=== PATIENT | female | born 1975 | race African-American/Black ===

== ENCOUNTER 2018-10-07 15:42 | Emergency (ER) | payer BC, MEDICAID, OTHER ==
[~2018-10-07] VITALS: Ht 167.6 cm; Wt 70.5 kg
[~2018-10-07 15:42] MED LIST: IBUP-777
[2018-10-07 16:20] VITALS: BP 142/75
== END 2018-10-07 19:00 | disposition left against medical advice (07) ==
LOC: ER 15:42
DX: M54.9 Dorsalgia, unspecified (principal); Z53.21 Procedure and treatment not carried out due to patient leaving prior to being seen by health care provider